=== PATIENT | male | born 1995 ===

== ENCOUNTER 2021-02-04 16:47 | Emergency (ER) | payer SELFPAY ==
[~2021-02-04] VITALS: Ht 170.2 cm; Wt 88.0 kg
[2021-02-04 17:04] VITALS: BP 139/97
[2021-02-04] MEDS ORDERED: proCHLORperazine 10 MG/2 ml inj IV ONE (20:45)
[2021-02-04] MEDS ORDERED: diphenhydrAMINE 50 mg/ml inj IV ONE (20:45)
[2021-02-04] MEDS ORDERED: normal saline 1000ml 1,000 ML IV ONE (20:45)
== END 2021-02-04 21:42 | disposition home or self-care (01) ==
LOC: ER 16:48
DX: R51.9 Headache, unspecified (principal); R11.0 Nausea
CPT/HCPCS: 96374; 96375; 99284; J0780; J1200; J7030